=== PATIENT | male | born 1985 | race Caucasian/White ===

== ENCOUNTER 2018-03-20 16:26 | Emergency (ER) | payer OTHER ==
[2018-03-20] MEDS ORDERED: KETOROLAC 60 MG/2 ML VIAL IM STA (18:07)
--- NOTE | 2018-03-20 18:09 | ED Physician Documentation ---
History of Present Illness - Stated complaint Stated Complaint: BACK PX - Chief complaint Chief Complaint: Back Pain - History obtained from History obtained from: Patient, Family - History of Present Illness Timing: Yesterday Pain level max: 8 Pain level now: 8 Improved by: rest Worsened by: movement - Additonal information Additional information: Patient is a 32-year-old male who presents to the emergency department with left lower back pain that radiates to the left lower quadrant of the abdomen. States that this started suddenly yesterday at about noon. Was seen at [facility] in [place] and had a reportedly negative CT scan, blood work, Urinalysis at that time. They gave him Percocet for home which he took 1 pill of approximately 6 hours ago and is still having pain. No diarrhea. No constipation. No dysuria. Does have a history of polycystic kidney disease. No fevers. Has never had similar symptoms. Worse with movement, better with rest. Denies any trauma. No numbness or tingling. No loss of bowel or bladder control. Review of Systems Ten Systems: 10 systems reviewed and negative Constitutional: denies: Fever, Chills Ears: denies: Ear pain Nose: denies: Rhinorrhea / runny nose, Congestion Throat: denies: Sore throat Cardiac: denies: Chest pain / pressure Respiratory: denies: Cough GI: denies: Nausea, Vomiting, Diarrhea, Hematemesis, Bloody / black stool : denies: Dysuria, Frequency, Hesitancy, Incontinent, Hematuria, Testicular pain Skin: denies: Rash Musculoskeletal: denies: Neck pain Neurologic: denies: Focal weakness, Numbness PD PAST MEDICAL HISTORY - Past Medical History Past Medical History: Yes Cardiovascular: Hypertension Respiratory: None Neuro: None Endocrine/Autoimmune: Other GI: None : Other HEENT: Chronic hearing loss, Other Musculoskeletal: None Derm: None Other Past Medical History: polycystic kidney disease - Past Surgical History Past Surgical History: Yes General: Appendectomy - Present Medications Home Medications: Ambulatory Orders Medication Instructions Recorded Confirmed Lisinopril 30 mg ORAL DAILY 05/07/03/20/18 Atorvastatin [Lipitor] 10 mg PO DAILY 03/20/18 03/20/18 Cyclobenzaprine [Flexeril] 10 mg PO TID PRN #20 tablet 03/20/18 Loratadine [Allergy] 1 tab PO PRN PRN 03/20/18 03/20/18 Meloxicam [Mobic] 7.5 mg PO BID PRN #20 tablet 03/20/18 oxyCODONE/ACET 5/325 [Percocet 5 1 - 2 tab PO Q6H MDD pain 03/20/18 03/20/18 mg/325 mg] - Allergies Allergies/Adverse Reactions: Allergies Allergy/AdvReac Type Severity Reaction Status Date / Time Penicillins Allergy Rash Verified 03/20/18 16:35 - Social History Does the pt smoke?: No Smoking Status: Never smoker Does the pt drink ETOH?: Yes ETOH Use: Beer, Liquor Does the pt have substance abuse?: No - Immunizations Immunizations are current?: Yes - POLST Patient has POLST: No PD ED PE NORMAL - Vitals Vital signs reviewed: Yes - General General: Alert and oriented X 3, No acute distress, Well developed/nourished - HEENT HEENT: PERRL, Moist mucous membranes - Neck Neck: Supple, no meningeal sign - Cardiac Cardiac: RRR - Respiratory Respiratory: No respiratory distress, Clear bilaterally - Abdomen Abdomen: Normal bowel sounds, Soft, Non tender, Non distended - Back Back: No spinal TTP, Other (paraspinal L low lumbar TTP. No midline TTP. No rash ) - Derm Derm: Warm and dry, No rash - Extremities Extremities: No calf tenderness / cord, Other (normal bilateral lower extremity patellar and ankle jerk reflexes. Normal great toe extension bilaterally) - Neuro Neuro: Alert and oriented X 3 - Psych Psych: Normal mood, Normal affect Results - Vitals Vitals: Vital Signs - 24 hr 03/20/18 03/20/18 16:30 20:19 Temperature 37.2 C Heart Rate 88 81 Respiratory 16 18 Rate Blood Pressure 140/89 H 123/73 O2 Saturation 100 97 Oxygen O2 Source Room air - Labs Labs: Laboratory Tests 03/20/18 03/20/18 03/20/18 18:20 18:20 19:00 WBC 9.7 RBC 4.93 Hgb 14.6 Hct 43.0 MCV 87.4 MCH 29.6 MCHC 33.8 RDW 13.6 Plt Count 176 MPV 8.0 Neut # 7.9 H Lymph # 1.1 L [place] # 0.7 Eos # 0.0 Baso # 0.0 Absolute Nucleated RBC 0.02 Nucleated RBC % 0.2 Sodium 131 L Potassium 3.6 Chloride 96 L Carbon Dioxide 26 Anion Gap 9.0 BUN 16 Creatinine 1.1 Estimated GFR (MDRD) 79 L Glucose 115 H Calcium 9.2 Total Bilirubin 1.3 H AST 23 ALT 47 Alkaline Phosphatase 43 Total Protein 7.8 Albumin 4.8 Globulin 3.0 Albumin/Globulin Ratio 1.6 Lipase 26 Urine Color YELLOW Urine Clarity CLEAR Urine pH 6.0 Ur Specific [place] <=1.005 Urine Protein NEGATIVE Urine Glucose (UA) NEGATIVE Urine Ketones NEGATIVE Urine Occult Blood NEGATIVE Urine Nitrite NEGATIVE Urine Bilirubin NEGATIVE Urine Urobilinogen 0.2 (NORMAL) Ur Leukocyte Esterase NEGATIVE Ur Microscopic Review NOT INDICATED Urine Culture Comments NOT INDICATED PD MEDICAL DECISION MAKING - ED course Complexity details: reviewed old records, reviewed results, re-evaluated patient , considered differential (no cauda equina, no spinal epidural abscess, no fracture, no aortic dissection or evidence of aneursym rupture), d/w patient, d/ w family ED course: Patient is a 32-year-old male who presents to the emergency department left- sided back pain radiating to the lower abdomen. Negative CT scan and lab work yesterday at [facility]. These records were obtained and reviewed. No acute laboratory findings today. Feels better after Toradol. Will trial on meloxicam for home. No evidence of diverticulitis, perforation, abscess. Abdomen is soft, nontender nondistended on serial exam. He is very well- appearing, nontoxic. Patient counseled regarding signs and symptoms for which I believe and urgent re-evaluation would be necessary. Patient with good understanding of and agreement to plan and is comfortable going home at this time This document was made in part using voice recognition software. While efforts are made to proofread this document, sound alike and grammatical errors may occur. Departure - Departure Disposition: 01 Home, Self Care Clinical Impression: Lumbar radiculopathy, acute Condition: Good Instructions: ED Sciatica Follow-Up: your,doctor in 1 week [Other] Prescriptions: Cyclobenzaprine [Flexeril] 10 mg PO TID PRN #20 tablet PRN Reason: Spasms Meloxicam [Mobic] 7.5 mg PO BID PRN #20 tablet PRN Reason: Pain Comments: Return if you worsen. This should improve over the next 2-3 days. Discharge Date/Time: 03/20/18 20:19
[2018-03-20 18:28] LABS: BASOPHILS % (AUTO) 0.4 %; EOSINOPHILS % (AUTO) 0.5 %; HGB - HEMOGLOBIN 14.6 g/dL (14.0-18.0); LYMPHOCYTES # (AUTO) 1.1 10^3/uL (1.5-3.5); LYMPHOCYTES % (AUTO) 10.9 %; MEAN CORPUSCULAR HEMOGLOBIN 29.6 pg (27.0-31.0); MEAN CORPUSCULAR HGB CONC 33.8 g/dL (32.0-36.0); MEAN CORPUSCULAR VOLUME 87.4 fL (80.0-94.0); MONOCYTES # (AUTO) 0.7 10^3/uL (0.0-1.0); MONOCYTES % (AUTO) 6.8 %; NEUTROPHILS # (AUTO) 7.9 10^3/uL (1.5-6.6); NEUTROPHILS % (AUTO) 81.4 %; PLT - PLATELET COUNT 176 10^3/uL (130-450); RED BLOOD COUNT 4.93 10^6/uL (4.70-6.10); RED CELL DISTRIBUTION WIDTH 13.6 % (12.0-15.0); WHITE BLOOD COUNT 9.7 x10^3/uL (4.8-10.8)
[2018-03-20 18:40] LABS: ALBUMIN 4.8 g/dL (3.2-5.5); ALBUMIN/GLOBULIN RATIO 1.6 (1.0-2.2); BILIRUBIN,TOTAL 1.3 mg/dL (0.2-1.0); CALCIUM 9.2 mg/dL (8.5-10.3); CREATININE 1.1 mg/dL (0.6-1.2); TOTAL PROTEIN 7.8 g/dL (6.7-8.2)
[2018-03-20 19:13] LABS: BILIRUBIN,URINE NEGATIVE (NEGATIVE); CLARITY,URINE CLEAR (CLEAR); GLUCOSE, URINE (UA) NEGATIVE (NEGATIVE); KETONES,URINE (UA) NEGATIVE (NEGATIVE); LEUKOCYTE ESTERASE, URINE NEGATIVE (NEGATIVE); NITRITE,URINE NEGATIVE (NEGATIVE); OCCULT BLOOD,URINE NEGATIVE (NEGATIVE); PROTEIN,URINE NEGATIVE (NEGATIVE); UROBILINOGEN,URINE 0.2 (NORMAL) E.U./dL (NORMAL)
[2018-03-20] MEDS ORDERED: DEXAMETHASONE 10 MG/ML VIAL IVP STA (20:04)
[2018-03-20 20:20] VITALS: BP 123/73
== END 2018-03-20 20:19 | disposition home or self-care (01) ==
LOC: ED 16:26
DX: M54.16 Radiculopathy, lumbar region (principal); I10 Essential (primary) hypertension; Q61.3 Polycystic kidney, unspecified
CPT/HCPCS: 36415; 80053; 81001; 81003; 83690; 85025; 87086; 96372; 96374; 99283

== ENCOUNTER 2022-05-14 18:32 | Emergency (ER) | payer OTHER ==
[2022-05-14 19:03] LABS: BASOPHILS % (AUTO) 0.5 %; EOSINOPHILS # (AUTO) 0.1 10^3/uL (0.0-0.7); EOSINOPHILS % (AUTO) 1.1 %; HCT - HEMATOCRIT 42.8 % (42.0-52.0); HGB - HEMOGLOBIN 14.9 g/dL (14.0-18.0); LYMPHOCYTES # (AUTO) 1.2 10^3/uL (1.5-3.5); LYMPHOCYTES % (AUTO) 13.8 %; MEAN CORPUSCULAR HEMOGLOBIN 30.7 pg (27.0-31.0); MEAN CORPUSCULAR HGB CONC 34.8 g/dL (32.0-36.0); MEAN CORPUSCULAR VOLUME 88.2 fL (80.0-94.0); MEAN PLATELET VOLUME 9.4 fL (7.4-11.4); MONOCYTES # (AUTO) 0.6 10^3/uL (0.0-1.0); MONOCYTES % (AUTO) 6.8 %; NEUTROPHILS # (AUTO) 6.6 10^3/uL (1.5-6.6); NEUTROPHILS % (AUTO) 77.4 %; PLT - PLATELET COUNT 189 10^3/uL (130-450); RED BLOOD COUNT 4.85 10^6/uL (4.70-6.10); RED CELL DISTRIBUTION WIDTH 12.3 % (12.0-15.0); WHITE BLOOD COUNT 8.5 x10^3/uL (4.8-10.8)
[2022-05-14 19:06] LABS: BILIRUBIN,URINE NEGATIVE (NEGATIVE); CLARITY,URINE CLEAR (CLEAR); GLUCOSE, URINE (UA) NEGATIVE (NEGATIVE); KETONES,URINE (UA) NEGATIVE (NEGATIVE); LEUKOCYTE ESTERASE, URINE NEGATIVE (NEGATIVE); NITRITE,URINE NEGATIVE (NEGATIVE); OCCULT BLOOD,URINE NEGATIVE (NEGATIVE); PH,URINE 5.5 PH (5.0-7.5); PROTEIN,URINE NEGATIVE (NEGATIVE); UROBILINOGEN,URINE 0.2 (NORMAL) E.U./dL (NORMAL)
[2022-05-14 19:16] LABS: ALBUMIN 5.2 g/dL (3.2-5.5); ALBUMIN/GLOBULIN RATIO 1.9 (1.0-2.2); BILIRUBIN,TOTAL 1.1 mg/dL (0.2-1.0); CALCIUM 9.7 mg/dL (8.5-10.3); CREATININE 1.1 mg/dL (0.6-1.2); POTASSIUM 3.8 mmol/L (3.5-5.0); TOTAL PROTEIN 7.9 g/dL (6.7-8.2)
[2022-05-14] MEDS ORDERED: HYDROmorphone 1 MG/ML CARPUJECT IVP STA (19:34)
[2022-05-14] MEDS ORDERED: SODIUM CHLORIDE 0.9% 1,000 ML IV STA (19:34)
[2022-05-14] MEDS ORDERED: ONDANSETRON 4 MG/2 ML VIAL IVP STA (19:34)
--- NOTE | 2022-05-14 19:37 | ED Physician Documentation ---
History of Present Illness - Stated complaint Stated Complaint: LT SIDE PX/NAUSEA - Chief complaint Chief Complaint: Abd Pain - Additonal information Additional information: 37-year-old male presents emergency department for evaluation of left upper quadrant left flank pain that began this morning. He reports it is worse with any type of movement. Though he has been having daily bowel movements he took a stool softener without relief. He has had some nausea and vomiting. No fevers. No melena hematochezia. He does report a history of polycystic kidney disease. No dysuria urgency or frequency. Past surgical history includes appendectomy Review of Systems Constitutional: reports: Reviewed and negative Nose: reports: Reviewed and negative Throat: reports: Reviewed and negative Cardiac: reports: Reviewed and negative GI: reports: Abdominal Pain, Nausea, Vomiting. denies: Constipation, Diarrhea, Hematemesis : reports: Reviewed and negative Skin: reports: Reviewed and negative PD PAST MEDICAL HISTORY - Past Medical History Past Medical History: Yes Cardiovascular: Hypertension, High cholesterol Respiratory: None Neuro: None Endocrine/Autoimmune: Other GI: None : Other HEENT: Chronic hearing loss, Other Psych: None Musculoskeletal: None Derm: None - Past Surgical History Past Surgical History: Yes General: Appendectomy HEENT: Other - Present Medications Home Medications: Ambulatory Orders Medication Instructions Recorded Confirmed lisinopriL [Lisinopril] 30 mg ORAL DAILY 05/07/16 05/14/22 Atorvastatin [Lipitor] 10 mg PO DAILY 03/20/18 05/14/22 Loratadine [Allergy] 1 tab PO PRN PRN 03/20/18 05/14/22 HYDROcod/ACETAM 5/325 [[place] 5/325] 1 tablet PO BID PRN #10 tablet 05/14/22 - Allergies Allergies/Adverse Reactions: Allergies Allergy/AdvReac Type Severity Reaction Status Date / Time Penicillins Allergy Rash Verified 05/14/22 18:41 - Social History Does the pt smoke?: No Smoking Status: Light tobacco smoker Does the pt drink ETOH?: Yes Does the pt have substance abuse?: No - Immunizations Immunizations are current?: Yes - POLST Patient has POLST: No PD ED PE NORMAL - General General: Alert and oriented X 3, No acute distress, Well developed/nourished - HEENT HEENT: Atraumatic, Moist mucous membranes - Neck Neck: Supple, no meningeal sign, No adenopathy - Cardiac Cardiac: RRR, No murmur - Respiratory Respiratory: No respiratory distress - Abdomen Abdomen: Normal bowel sounds, Soft. No: Non tender (Tenderness in the left upper quadrant without guarding or rebound. No CVA tenderness. No tenderness in the lower pelvic region.) - Back Back: No CVA TTP, No spinal TTP - Derm Derm: Normal color, Warm and dry, No rash - Extremities Extremities: No deformity, No tenderness to palpate, Normal ROM s pain - Neuro Neuro: Alert and oriented X 3, basket assembler 2-12 intact Eye Opening: Spontaneous Motor: Obeys Commands Verbal: Oriented GCS Score: 15 Results - Vitals Vitals: Vital Signs - 24 hr 05/14/22 18:42 Temperature 36.7 C Heart Rate 90 Respiratory 18 Rate Blood Pressure 143/87 H O2 Saturation 98 Oxygen O2 Source Room air - Labs Labs: Laboratory Tests 05/14/22 05/14/22 05/14/22 18:54 18:56 18:56 WBC 8.5 RBC 4.85 Hgb 14.9 Hct 42.8 MCV 88.2 MCH 30.7 MCHC 34.8 RDW 12.3 Plt Count 189 MPV 9.4 Neut # (Auto) 6.6 Lymph # (Auto) 1.2 L [place] # (Auto) 0.6 Eos # (Auto) 0.1 Baso # (Auto) 0.0 Absolute Nucleated RBC 0.00 Nucleated RBC % 0.0 Sodium 137 Potassium 3.8 Chloride 100 L Carbon Dioxide 28 Anion Gap 9.0 BUN 19 Creatinine 1.1 Estimated GFR (MDRD) 76 L Glucose 103 H Calcium 9.7 Total Bilirubin 1.1 H AST 20 ALT 33 Alkaline Phosphatase 47 Total Protein 7.9 Albumin 5.2 Globulin 2.7 Albumin/Globulin Ratio 1.9 Lipase 39 Urine Color YELLOW Urine Clarity CLEAR Urine pH 5.5 Ur Specific [place] 1.020 Urine Protein NEGATIVE Urine Glucose (UA) NEGATIVE Urine Ketones NEGATIVE Urine Occult Blood NEGATIVE Urine Nitrite NEGATIVE Urine Bilirubin NEGATIVE Urine Urobilinogen 0.2 (NORMAL) Ur Leukocyte Esterase NEGATIVE Ur Microscopic Review NOT INDICATED Urine Culture Comments NOT INDICATED - Rads (name of study) CT abd Radiology: Final report received (Bilateral enlarged kidneys with innumerable cysts of varying sizes consistent with polycystic kidney disease. Left perinephric stranding bilaterally is nonspecific. The findings may reflect possible sequelae of a cyst rupture. No hydronephrosis or hydroureter) PD MEDICAL DECISION MAKING - ED course Complexity details: reviewed old records, re-evaluated patient, considered differential, d/w patient ED course: This is a very pleasant 37-year-old male who has a history of polycystic kidney disease, followed by a activity aid in [place], who presents to the emergency department with sudden onset left upper quadrant abdominal pain. He reports pain is severe and dropped him to his knees. He did have some nausea and vomiting. No history of similar in the past. Screening labs are essentially unremarkable. He has normal renal function. Urine is without signs of infection or hematuria. A CT of the abdomen does show fairly significant and severe polycystic kidney disease. There is some stranding around the left kidney that may suggest a ruptured cyst as the etiology of his pain. Here in the ER he was repleted with a liter of fluids Zofran and Dilaudid and his pain is markedly better. At this time given normal renal function and no other worrisome findings seen on CT scan he is discharged home. He is recommended close follow-up with his activity aid. A limited prescription of hydrocodone is being sent to the pharmacy. Emergent return precautions discussed I am prescribing a short course of short-acting opioid pain medication for this patient. I have reviewed the patients [employer]QUIPMENT MECH[employer]IC and no concerning findings were noted. I have discussed that the opioids are for short term therapy only, and will not be refilled from the ED. Departure - Departure Disposition: 01 Home, Self Care Clinical Impression: Left upper quadrant abdominal pain, Polycystic kidney disease Condition: Stable Record reviewed to determine appropriate education?: Yes Prescriptions: HYDROcod/ACETAM 5/325 [[place] 5/325] 1 tablet PO BID PRN #10 tablet PRN Reason: Pain Comments: Remi you are seen today in the emergency department because of sudden pain in your left upper quadrant of your abdomen. Your screening labs, blood count and electrolytes are all essentially normal. Your kidney function is normal. The CT of your abdomen does show fairly extensive polycystic kidney disease. There is a little bit of stranding around your left kidney. This suggest that the cause of your pain is most likely a ruptured kidney cyst. Please discuss this ED visit closely with your activity aid. If at any point you find that your symptoms are worse, you develop fevers, have obvious blood in your urine or uncontrolled pain despite the hydrocodone then please return immediately to the ER for a second evaluation. I am prescribing a short course of narcotic pain medication for you. These are potentially dangerous and addictive medications that should be used carefully. These medications may constipate you. Take an [id number] stool softener (docusate) twice daily with plenty of water while taking these medications. If you go 24 hours without a bowel movement, take [id number] miralax, per package instructions. Do not drink or drive while taking these medications. If you received narcotic or sedating medications while in the emergency department, do not drive for 24 hours. Store this medication in a safe, secure place and out of reach of children. It is a violation of federal law to give or sell this medication to another person or to use in a manner other than prescribed. The ED will not refill narcotic prescriptions, including prescriptions lost or stolen. To dispose of unwanted medications: 1. [facility] at [address] in [place] has a medication drop box. They accept prescription medications (in pill form) Friday through Friday 9:00 a.m. to 5:00 p.m. 2. [facility] [employer] accepts prescription medications (in pill form only) for disposal year round. Call for more information. 3. Contact the [facility] for the next [facility] sponsored prescription drug collection event. , [phone], or [phone]; Note that many narcotic pain relievers also contain Tylenol/acetaminophen. Please ensure that your total dose of acetaminophen from all sources does not exceed 3 g (3000 mg) per day. Your prescription has been sent to the [facility] in [place]
--- NOTE | 2022-05-14 20:51 | CT Report ---
PROCEDURE: Abdomen/Pelvis WO INDICATIONS: left flank pain TECHNIQUE: Noncontrast 5 mm thick sections acquired from the diaphragms to the symphysis. 5 mm coronal and sagi ttal reformats were then performed. For radiation dose reduction, the following was used: automated exposure control, adjustment of mA and/or kV according to patient size. COMPARISON: None. FINDINGS: Image quality: Excellent. Lung bases: There is mild dependant atelectasis. Heart: Heart is normal in size. URINARY: Right Kidney and Ureter: The right kidney is enlarged with innumerable cysts of varying sizes demons trated throughout the kidney consistent with polycystic kidney disease. These include multiple probab le hyperdense hemorrhagic cysts. However, a renal mass cannot be excluded on the current study. Right kidney measures up to approximately 18.9 cm in sagittal length by approximately 16.3 cm in coronal l ength by 10.4 cm in width and 12.3 cm in depth. Right kidney volume measures approximately 1179 mL. N o perinephric stranding or hydronephrosis. No hydroureter. Left Kidney and Ureter: The right kidney is enlarged with innumerable cysts is suffering size is dem onstrated throughout the kidney consistent with polycystic kidney disease. These include multiple pro bable hyperdense hemorrhagic cysts, but a renal mass cannot be excluded on the current study. This me asures up to 24.0 cm in sagittal length by 17.3 cm in coronal length by 11.6 cm in width and 13.1 cm in depth. Left kidney volume measures approximately 1643 mL. There is mild left perinephric stranding laterally. No hydronephrosis or hydroureter. Bladder: Normal wall thickness. No stones. ABDOMEN: Liver: Noncontrast evaluation of the liver demonstrates no discrete mass. Gallbladder: Within normal limits without calcified gallstones. Biliary ducts: No biliary ductal dilatation. Pancreas: Unremarkable. Spleen: Normal in size. Adrenal Glands: No adrenal nodules. Stomach and Bowel: Stomach, small bowel loops, and colon are normal in caliber and wall thickness. T he appendix is not discretely visualized and likely surgically absent. Peritoneum: No abnormal intraperitoneal fluid. No free air. Ventral Wall: No hernia. Abdominal Nodes: No retroperitoneal or mesenteric adenopathy by size criteria. Vessels: Aorta and inferior vena cava are normal in size. PELVIS: Pelvic Organs: Unremarkable. Pelvic Nodes: No enlarged lymph nodes. Miscellaneous: No inguinal hernias identified. Bones: Visualized osseous structures demonstrate no suspicious focal lesions. IMPRESSION: 1. Bilateral enlarged kidneys with innumerable cysts of varying sizes consistent with polycystic kidn ey disease. These include multiple hyperdense cysts likely reflecting hemorrhagic cysts but a renal m ass cannot be excluded on the current study. Further evaluation may be obtained with a contrast-enhan wilver renal mass protocol MRI if clinically indicated. 2. Left perinephric stranding bilaterally is nonspecific. The findings may reflect possible sequelae of a cyst rupture. 3. No hydronephrosis or hydroureter. Reviewed by: John Mojica MD on 05/14/2022 8:49 PM PDT Approved by: John Mojica MD on 05/14/2022 8:49 PM PDT Station ID: [id number]
[2022-05-14 21:22] VITALS: BP 113/80
== END 2022-05-14 21:16 | disposition home or self-care (01) ==
LOC: ED 18:32
DX: Q61.3 Polycystic kidney, unspecified (principal); I10 Essential (primary) hypertension; Z72.0 Tobacco use
CPT/HCPCS: 36415; 74176; 80053; 81003; 83690; 85025; 96374; 96375; 99284; J1170; 81001; 87086